=== PATIENT | male | born 1995 | race Caucasian/White ===

== ENCOUNTER 2017-03-06 20:16 | Inpatient (IN) | payer OTHER ==
[~2017-03-06] VITALS: Ht 170.2 cm; Wt 60.0 kg
[2017-03-06 23:06] LABS: MEAN CORPUSCULAR HEMOGLOBIN 28.4 pg (27.0-33.0); MEAN CORPUSCULAR HGB CONC 33.9 g/dl (32.0-36.5); MEAN CORPUSCULAR VOLUME 83.9 fl (80.0-96.0); PLATELET COUNT, AUTOMATED 202 10^3/uL (150-450); RED CELL DISTRIBUTION WIDTH 12.2 % (11.5-14.5); WHITE BLOOD COUNT 6.1 10^3/uL (4.0-10.0)
[2017-03-06 23:33] LABS: METHADONE URINE NEGATIVE (NEGATIVE)
[2017-03-06 23:42] LABS: ALBUMIN 4.3 GM/DL (3.2-5.2); ALBUMIN/GLOBULIN RATIO 1.23 (1.00-1.93); ALKALINE PHOSPHATASE 119 U/L (45-117); ALT/SGPT 16 U/L (12-78); ANION GAP 5 MEQ/L (8-16); AST/SGOT 11 U/L (15-37); BILIRUBIN,DIRECT 0.2 MG/DL (0.0-0.2); BILIRUBIN,TOTAL 0.6 MG/DL (0.2-1.0); BLOOD UREA NITROGEN 17 MG/DL (7-18); CALCIUM LEVEL 9.1 MG/DL (8.5-10.1); CARBON DIOXIDE LEVEL 32 MEQ/L (21-32); CHLORIDE LEVEL 104 MEQ/L (98-107); CREATININE FOR GFR 1.02 MG/DL (0.70-1.30); GLUCOSE, FASTING 78 MG/DL (70-105); POTASSIUM SERUM 3.8 MEQ/L (3.5-5.1); SODIUM LEVEL 141 MEQ/L (136-145); TOTAL PROTEIN 7.8 GM/DL (6.4-8.2)
[2017-03-07] MEDS ORDERED: MAALOX 30 ML SUSP *UDC PO PRN (00:15)
[2017-03-07] MEDS ORDERED: ACETAMINOPHEN TAB 650MG DOSE (2X325MG) PO PRN (00:15)
[2017-03-07] MEDS ORDERED: MOM 30ML SUSPENSION UDC PO PRN (00:15)
[2017-03-07] MEDS ORDERED: traZODone 50 MG TAB PO PRN (00:15)
[2017-03-07 00:55] VITALS: BP 132/66
[2017-03-07] MEDS: NICOTINE 14 MG/24 HR TRANSDERMAL TD SCH (08:48)
--- NOTE | 2017-03-07 09:43 | HPEPDOC ---
[facility] Medical History & Physical Date of Admission Mar 06, 2017 History and Physical PCP: [facility] ATTENDING: Dr. Ranjeet Gunter HPI: 21 yo M admitted to [facility] for unspecified depressive disorder, being medically examined today. No acute medical complaints today. Denies any fevers, chills, weakness, fatigue, LOPEZ, CP, SOB, cough, palpitations, abdominal pain, N/V /D or changes in bowel or bladder habits. 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 ROS: As noted in HPI, otherwise 11pt ROS of systems reviewed and remarkable only for patient is noted to have insect bites bilateral forearms. He denies any pruritus or erythema. He cannot recall how he got these. PE: GEN: 21 yo M, appears stated age. Well-nourished, well developed. No acute distress. Alert and oriented x 3. Patient answers mostly with yes or no, flat affect. HEENT: Normocephalic, atraumatic. Pupils are equal, round, and reactive to light. Extraocular movements are intact. No nystagmus appreciated. Sclera are nonicteric. Conjunctiva without injection. Nose midline. Nasal turbinates without bogginess. EACs both patent BL. TMs both visualized and cain with good cone of light, no bulging or erythema. No facial asymmetry. Moist mucous membranes. Dentition fair. Pharynx pink and moist, no cobblestoning. Neck supple , trachea midline. No lymphadenopathy or thyromegaly appreciated. CHEST: Regular rate and rhythm, +S1, +S2 LUNGS: Clear to auscultation bilaterally. No wheezes, rales, or rhonchi. Breathing appears symmetric and easy. Patient is speaking in full sentences. No accessory muscle use. ABD: Round, soft, non-tender, non-distended. +Bowel sounds throughout. No rebound or guarding. No costovertebral angle tenderness. EXT: Pulses 2+ bilaterally dorsalis pedis and radial. No lower extremity edema appreciated. SKIN: [place], dry, warm. Capillary refill <2sec. No rashes. Scattered erythematous papular areas bilateral forearms, no signs of infection, no drainage. Patient states is related to insect bites. NEURO: Alert and oriented x 3. Cranial nerves III-XII are intact. No focal deficits appreciated. EKG: Pending A&P: 21 yo M admitted to [facility] for unspecified depressive disorder 1. Psych. Plan per Psychiatry. Obtain baseline EKG to assure the safety of psychiatric medications as they can prolong the QT interval. 2. Nicotine dependence. Patch available. 3. Insect bites bilateral forearms. No signs of infection at this time. Monitor. Apply Benadryl cream as needed. 4. Follow up with PCP on discharge. 5. Tattoo done unprofessionally. Patient agrees to HIV and hepatitis screening. 6. Staff member Viet present throughout exam. Vital Signs Vital Signs Date Time Temp Pulse Resp B/P (MAP) Pulse Ox O2 Delivery O2 Flow Rate FiO2 03/07/17 00:55 98.4 45 18 132/66 100 Room Air Laboratory Data Labs 24H Laboratory Tests 2 03/06/17 22:52: Nucleated Red Blood Cells % (auto) 0.0, Anion Gap 5L, Calcium Level 9.1, Aspartate Amino Transf (AST/SGOT) 11L, Alanine Aminotransferase (ALT/SGPT) 16, Alkaline Phosphatase 119H, Total Bilirubin 0.6, Direct Bilirubin 0.2, Total Protein 7.8, Albumin 4.3, Albumin/Globulin Ratio 1.23, Thyroid Stimulating Hormone (TSH) 0.935, Salicylates Level < 1.7L, Urine Amphetamines Screen NEGATIVE, Urine Benzodiazepines Screen NEGATIVE, Urine Opiates Screen NEGATIVE, Urine Methadone Screen NEGATIVE, Acetaminophen Level < 2.0L, Urine Barbiturates Screen NEGATIVE, Urine Phencyclidine Screen NEGATIVE, Urine Cocaine Metabolite Screen NEGATIVE, Urine Cannabinoids Screen NEGATIVE, Ethyl Alcohol Level < 0.003 CBC/BMP Laboratory Tests 03/06/17 22:52 Red Blood Count 5.52, Mean Corpuscular Volume 83.9, Mean Corpuscular Hemoglobin 28.4, Mean Corpuscular Hemoglobin Concent 33.9, Red Cell Distribution Width 12.2 Home Medications No Active Prescriptions or Reported Meds Allergies Coded Allergies: Ibuprofen (Verified Allergy, Severe, anaphylaxis, 03/06/17) Gilda Richardson Mar 07, 2017 09:43
[2017-03-07] MEDS ORDERED: diphenhydrAMINE CREAM 30GM TOP PRN (09:45)
[2017-03-07 18:00] VITALS: BP 142/48
--- NOTE | 2017-03-07 21:53 | MHHPEPDOC ---
[facility] History & Physical History and Physical DATE OF ADMISSION: Mar 07, 2017 at 00:06 LEGAL STATUS AT ADMISSION: 9.39. CHIEF COMPLAINT: "I want out of the " HISTORY OF PRESENT ILLNESS: Patient is a 21-year-old white male, who has no psychiatric or medical history. He was cleared medically from the [facility] ED and admitted to [facility] with depressive disorder. 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 He is very guarded, providing mostly yes/no answers only. 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 He appears very depressed & withdrawn, and admits to both. He says that his depression stems from being "dehumanized" by the & that its not good for him. He says that he has made no friends here, knows no one & doesn't plan to. He reports poor sleep, erratic appetite & ongoing thoughts of suicide. He denies having any specific plan at this time. He admits to h/o depression & inpatient care prior to being in the ". He appear guarded on interview. When asked questions about his childhood and experience in the he says "it just not something" he wants to be apart of. He mentions he feels optomistic about his future in college, but does not elaborate on the field he wishes to pursue. He is ambiguus with regards to his past. He says he has suicidal ideations, but no specific plan. He denies he would actually end his life. He says he feels he "jut needs to be out of the ". He denies any HI, AVH, mood swings, manic symptoms, paranoia or delusions. PSYCHIATRIC REVIEW OF SYSTEMS: Affective: Says he's depressed. Has lost interest in hobbies, does not elaborate (Anhedonia). Says he sleeps all day if he can. Says his appetite and energy is low. Suicidal ideations, without plan. Anxiety: Denies Trauma: Denies Psychosis: None Personality: Cluster A traits: Schizoid, says he doesn't need social interaction and doesn't need it, decreased range of emotional expression. PAST PSYCHIATRIC HISTORY: Prior Psychiatric Disorder: None Outpatient Treatment: None Suicidal/Self injurious: Passive suicidal ideations, no specific plan. Psychotropic Medication History: None ALLERGIES: Please see below. FAMILY PSYCHIATRIC HISTORY: Says mom was depressed, father was alcoholic. SOCIAL HISTORY: Early Relations/development: Says he grew up in [place]. Finished high school. Denies any form of abuse. Joined the and since then has felt "depressed " due to the "dehumanization" aspect of the . Currently resides in [place]. Paternal relationships: Says he had a good relationship with his father, despite his alcoholism. 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 Supports: Says he has a strong family backing. Abuse/trauma: Denies SUBSTANCE ABUSE HISTORY: Cannabis, a few times a month. Social drinking few times a month. Smokes a quater pack per week. PAST MEDICAL/SURGICAL HISTORY: None VITAL SIGNS: Temperature 99.7, BP 142/48 (79), Respiratory Rate 16, HR 60, % oxygenation on room air 97 MENTAL STATUS EXAMINATION: General appearance: Patient is a 21-year old white male, who is NAD, cooperative , poor eye contact, in street clothing. Speech: non-spontaneous, decreased in rate, rhythm, volume Thought processes: linear, logical Thought content: Endorses passive suicidal ideations, denies HI, AVH, paranoia, delusions Abstract reasoning and computation: Unable to assess Description of associations: Unable to assess Description of abnormal or psychotic thoughts: Denies Judgment: poor Insight: fair Orientation: A/O x3 Recent and remote memory: Good Attention span and concentration: Fair Fund of knowledge: Unable to assess Mood: "pretty good" Affect: dysthymic, blunted, mood-incongruent DIAGNOSES: 1. Unspecified depressive disorder ASSESSMENT: Patient states he wants out of the . He is guarded and is likely minimizing his symptoms. He says he doesn't like the organization of the system, but does not elaborate further. He says he is withdrawn and feels the the environment is not for him, as it is a "dehumanizing" experience. 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 He has goal oriented activity, which includes pursuing a different route for his future to pursue a college degree. However, he has no specific field of study in mind. He mentions he has had depression since starting his career in October 2015. He also mentions he has been "depressed" in the past, several years ago and was treated on Wellbutrin (no dose mentioned) with some success, without significant side effects. He states he has used cannabis infrequent, couple times a month. He was counselled with regards to his cannabis use and smoking habit. He denies other drug use. Overall he feels indifferent to his situation and says he has lost interest in his hobbies, which he does not elaborate on, and spends his time off duty sleeping more than 12 hours a day. Further workup is required to assess the patient as he remains guarded. PROBLEM LIST: 1. Depression 2. Avoidance Coping 3. At risk for self harm 4. Suicidal Ideations INITIAL TREATMENT PLAN: 1. Patient was admitted on a 9.. 2. Complete history was obtained. 3. With patients permission, family will be contacted and database will be expanded. 4. Patients medication regimen will be reviewed and changed accordingly. 5. Patient will be provided with protected environment. 6. Patient will be treated with individual, group, and milieu therapies. 7. Patient will receive supportive psych-education. 8. Discharge planning will commence immediately. 9. Outpatient follow-up treatment will be strongly recommended. 10. The initial treatment plan will focus initially on: * Depression. * Risk for suicide. * Substance abuse. ESTIMATED LENGTH OF STAY: 2-10 DAYS. TIME SPENT COUNSELING AND COORDINATING INITIAL CARE: 60 minutes. Vital Signs Vital Signs Date Time Temp Pulse Resp B/P (MAP) Pulse Ox O2 Delivery O2 Flow Rate FiO2 03/07/17 18:00 99.7 60 16 142/48 (79) 03/07/17 00:55 100 Room Air Laboratory Data 24H Labs Laboratory Tests 2 03/06/17 22:52: Nucleated Red Blood Cells % (auto) 0.0, Anion Gap 5L, Calcium Level 9.1, Aspartate Amino Transf (AST/SGOT) 11L, Alanine Aminotransferase (ALT/SGPT) 16, Alkaline Phosphatase 119H, Total Bilirubin 0.6, Direct Bilirubin 0.2, Total Protein 7.8, Albumin 4.3, Albumin/Globulin Ratio 1.23, Thyroid Stimulating Hormone (TSH) 0.935, Salicylates Level < 1.7L, Urine Amphetamines Screen NEGATIVE, Urine Benzodiazepines Screen NEGATIVE, Urine Opiates Screen NEGATIVE, Urine Methadone Screen NEGATIVE, Acetaminophen Level < 2.0L, Urine Barbiturates Screen NEGATIVE, Urine Phencyclidine Screen NEGATIVE, Urine Cocaine Metabolite Screen NEGATIVE, Urine Cannabinoids Screen NEGATIVE, Ethyl Alcohol Level < 0.003 03/07/17 10:10: CBC/BMP Laboratory Tests 03/06/17 22:52 Red Blood Count 5.52, Mean Corpuscular Volume 83.9, Mean Corpuscular Hemoglobin 28.4, Mean Corpuscular Hemoglobin Concent 33.9, Red Cell Distribution Width 12.2 Medications No Active Prescriptions or Reported Meds Allergies Coded Allergies: Ibuprofen (Verified Allergy, Severe, anaphylaxis, 03/06/17) GEORGINA REDMAN PGY-1 Mar 07, 2017 21:53
[2017-03-08 06:50] VITALS: BP 121/55
[2017-03-08] MEDS: NICOTINE 14 MG/24 HR TRANSDERMAL TD SCH (08:27)
[2017-03-08] MEDS ORDERED: buPROPion 100 MG TAB PO SCH (09:00)
--- NOTE | 2017-03-08 14:25 | MHIPNPDOC ---
[facility] Progress Note Progress Note DATE OF SERVICE: 03/08/17 HISTORY: Patient is a 21-year-old white male, who has no psychiatric or medical history. He was cleared medically from the [facility] ED and admitted to [facility] with depressive disorder. 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 He is very guarded, providing mostly yes/no answers only. 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 He appears very depressed & withdrawn, and admits to both. He says that his depression stems from being "dehumanized" by the & that its not good for him. He says that he has made no friends here, knows no one & doesn't plan to. He reports poor sleep, erratic appetite & ongoing thoughts of suicide. He denies having any specific plan at this time. He admits to h/o depression & inpatient care prior to being in the ". He appear guarded on interview. When asked questions about his childhood and experience in the he says "it just not something" he wants to be apart of. He mentions he feels optimistic about his future in college, but does not elaborate on the field he wishes to pursue. He is ambiguus with regards to his past. He says he has suicidal ideations, but no specific plan. He denies he would actually end his life. He says he feels he "jut needs to be out of the ". He denies any HI, AVH, mood swings, manic symptoms, paranoia or delusions. Interval History 03/08/17: Says he's doing "pretty good" today. Says he feels a little tired. Says he got 7-8 hours of sleep last night. Says his appetite is "ok" and has not changed in the last few weeks. When asked about why he smiles he says "I just do that", it's a reflex. He is resistant and guarded during the interview, answers in one words answers. He denies suicidal thoughts, saying "not today". He says his mood is "indifferent", which is how it has been since joining the army. He makes intense eye contact and speaks in a quiet, low voice. Denies anxiety, AVH, paranoia, delusions. May be minimizing his symptoms. Says he is fine with isolating himself and being withdrawn. VITAL SIGNS: See below. NEW TEST RESULTS: none CURRENT MEDICATIONS: See below. MENTAL STATUS EXAMINATION: Patient is a 21-year old white male, who is in NAD, in hospital clothing, inappropriate/intense eye contact Speech: Is decreased in rate, rhythm, volume, non spontaneous, answers in 1 or 2 words Language skills are Intact Thought processes including: linear, logical Thought content: Denies SI, HI, AVH, paranoia Abstract reasoning, and computation: Poor Description of associations: Good. Description of abnormal or psychotic thoughts: None Judgment: poor Insight: poor Orientation: A/O x3 Recent and remote memory: Good Attention span and concentration: Fair Language: appropriate Fund of knowledge: Average Mood: "indifferent" Affect: anhedonic, Flat, mood congruent, inappropriate (smiles occasionally) DIAGNOSES: 1. Unspecified psychotic disorder ASSESSMENT: Patient asks about how to get out army. He denies any psychotic symptoms, but smiles occasionally without any triggers and appears to be responding to internal stimuli. His eye contact is intense and inappropriate. He says he "feels indifferent". Currently he says he's neither anxious or having decreased mood. Will consider treatment with an SSRI if he endorses mood symptoms. MANAGEMENT PLAN: Stopped Wellbutrin. Started on Invega 3 mg QAM daily. Will consider increasing his dose of medication if he remains guarded or does not show improvement. Continue to monitor for safety. Continue to monitor for medication side effects including but not limited to, restlessness, drowsiness, dizziness, Headache, tremor, weight gain, nausea upset stomach, sexual impotence. Continue treatment plan. TIME SPENT: 30 minutes. Vital Signs Vital Signs Date Time Temp Pulse Resp B/P (MAP) Pulse Ox O2 Delivery O2 Flow Rate FiO2 03/08/17 06:50 97.5 58 18 121/55 (77) 03/07/17 00:55 100 Room Air Current Medications Current Medications Acetaminophen (Tylenol Tab) 650 mg Q6HP PRN PO HEADACHE or DISCOMFORT; Start 03/07/17 at 00:15; Stop 04/06/17 at 00:14 Al Hydrox/Mg Hydrox/Simethicone (Mylanta) 30 ml Q4HP PRN PO HEARTBURN/ INDIGESTION; Start 03/07/17 at 00:15; Stop 04/06/17 at 00:14 Bupropion HCl (Wellbutrin) 50 mg DAILY PO Last administered on 03/08/17 08:27 ; Start 03/08/17 at 09:00; Stop 03/08/17 at 09:16; Status DC Diphenhydramine HCl (Benadryl Cream) 1 dose BIDP PRN TOP ITCHING; Start at 09:45; Stop 04/06/17 at 09:44 Home Med (Med Rec Complete!) ASDIRECTED XX ; Start 03/07/17 at 01:00; Stop at 01:00; Status DC Magnesium Hydroxide (Milk Of Magnesia) 30 ml DAILYPRN PRN PO CONSTIPATION; Start 03/07/17 at 00:15; Stop 04/06/17 at 00:14 Nicotine (Nicoderm Cq 14mg) 1 patch DAILY TD Last administered on 03/08/17 08 :27; Start 03/07/17 at 09:00; Stop 04/06/17 at 08:59 Paliperidone (Invega) 3 mg QAM PO ; Start 03/09/17 at 09:00; Stop 04/08/17 at 08:59 Trazodone HCl (Desyrel) 50 mg QHSP PRN PO INSOMNIA; Start 03/07/17 at 00:15; Stop 04/06/17 at 00:14 Allergies Coded Allergies: Ibuprofen (Verified Allergy, Severe, anaphylaxis, 03/06/17) GEORGINA REDMAN PGY-1 Mar 08, 2017 14:25
[2017-03-08] MEDS: SERTRALINE HCL 50 MG TAB PO SCH (16:41)
[2017-03-08 18:00] VITALS: BP 141/64
--- NOTE | 2017-03-08 21:05 | ECGEPIP ---
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
[2017-03-09 07:24] VITALS: BP 128/63
[2017-03-09] MEDS: SERTRALINE HCL 50 MG TAB PO SCH (09:19)
[2017-03-09] MEDS: NICOTINE 14 MG/24 HR TRANSDERMAL TD SCH (09:19)
[2017-03-09] MEDS: PALIPERIDONE 3 MG ER TAB (INVEGA) PO SCH (09:19)
--- NOTE | 2017-03-09 10:01 | MHIPNPDOC ---
[facility] Progress Note Progress Note DATE OF SERVICE: 03/09/17 HISTORY: Patient is a 21-year-old white male, who has no psychiatric or medical history. He was cleared medically from the [facility] ED and admitted to [facility] with depressive disorder. 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 He is very guarded, providing mostly yes/no answers only. 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 He appears very depressed & withdrawn, and admits to both. He says that his depression stems from being "dehumanized" by the & that its not good for him. He says that he has made no friends here, knows no one & doesn't plan to. He reports poor sleep, erratic appetite & ongoing thoughts of suicide. He denies having any specific plan at this time. He admits to h/o depression & inpatient care prior to being in the ". He appear guarded on interview. When asked questions about his childhood and experience in the he says "it just not something" he wants to be apart of. He mentions he feels optimistic about his future in college, but does not elaborate on the field he wishes to pursue. He is ambiguus with regards to his past. He says he has suicidal ideations, but no specific plan. He denies he would actually end his life. He says he feels he "jut needs to be out of the ". He denies any HI, AVH, mood swings, manic symptoms, paranoia or delusions. Interval History 03/09/17: Patient appears to have increased energy and is more alert on interview. His speech is spontaneous and he answers in phrases. Eye contact is normal. Says he feels "happy" for the first time in a while, since he got news after talking to his staff sergeant that there might be arrangements in a few months for his discharge. Says his appetite has improved, as well as his energy. Says he didn't sleep last night very well, however he didn't take his Trazodone 50 mg before bed. Patient is smiling more on interview. Denies suicidal ideations or medication side effects apart from some mild nausea in the mornings. VITAL SIGNS: See below. NEW TEST RESULTS: none CURRENT MEDICATIONS: See below. MENTAL STATUS EXAMINATION: Patient is a 21-year old white male, who is in NAD, in hospital clothing, inappropriate/intense eye contact Speech: Is decreased in rate, rhythm, volume, spontaneous, answers in 1 or 2 words Language skills are Intact Thought processes including: linear, logical Thought content: Denies SI, HI, AVH, paranoia Abstract reasoning, and computation: Poor Description of associations: Good. Description of abnormal or psychotic thoughts: None Judgment: improving Insight: improving Orientation: A/O x3 Recent and remote memory: Good Attention span and concentration: Fair Language: appropriate Fund of knowledge: Average Mood: "alright" Affect: dysthymic, constricted, mood congruent, appropriate DIAGNOSES: 1. Unspecified psychotic disorder 2. Unspecified depressive disorder ASSESSMENT: Patient thinks he is improving with regards to mood. He appears to have more energy and says he will try to participate in groups today. He says both the news of possible discharge and treatment here on the unit are helping him. We talked about how Trazodone 50 mg QHS can help him with his sleep. Medication side effects were discussed with patient. MANAGEMENT PLAN: Continue treatment plan. No medication changes at this time. Continue to monitor for safety. Continue to monitor for medication side effects including but not limited to, nausea, headache, restlessness, drowsiness, dizziness, tremor, weight gain, nausea upset stomach, sexual impotence. TIME SPENT: 30 minutes. Vital Signs Vital Signs Date Time Temp Pulse Resp B/P (MAP) Pulse Ox O2 Delivery O2 Flow Rate FiO2 03/09/17 07:24 98.6 76 16 128/63 (84) Room Air 03/07/17 00:55 100 Current Medications Current Medications Acetaminophen (Tylenol Tab) 650 mg Q6HP PRN PO HEADACHE or DISCOMFORT; Start 03/07/17 at 00:15; Stop 04/06/17 at 00:14 Al Hydrox/Mg Hydrox/Simethicone (Mylanta) 30 ml Q4HP PRN PO HEARTBURN/ INDIGESTION; Start 03/07/17 at 00:15; Stop 04/06/17 at 00:14 Bupropion HCl (Wellbutrin) 50 mg DAILY PO Last administered on 03/08/17 08:27 ; Start 03/08/17 at 09:00; Stop 03/08/17 at 09:16; Status DC Diphenhydramine HCl (Benadryl Cream) 1 dose BIDP PRN TOP ITCHING; Start at 09:45; Stop 04/06/17 at 09:44 Home Med (Med Rec Complete!) ASDIRECTED XX ; Start 03/07/17 at 01:00; Stop at 01:00; Status DC Magnesium Hydroxide (Milk Of Magnesia) 30 ml DAILYPRN PRN PO CONSTIPATION; Start 03/07/17 at 00:15; Stop 04/06/17 at 00:14 Nicotine (Nicoderm Cq 14mg) 1 patch DAILY TD Last administered on 03/09/17 09 :19; Start 03/07/17 at 09:00; Stop 04/06/17 at 08:59 Paliperidone (Invega) 3 mg QAM PO Last administered on 03/09/17 09:19; Start 03/09/17 at 09:00; Stop 04/08/17 at 08:59 Sertraline HCl (Zoloft) 50 mg DAILY PO Last administered on 03/09/17 09:19; Start 03/08/17 at 09:00; Stop 04/07/17 at 08:59 Trazodone HCl (Desyrel) 50 mg QHSP PRN PO INSOMNIA; Start 03/07/17 at 00:15; Stop 04/06/17 at 00:14 Allergies Coded Allergies: Ibuprofen (Verified Allergy, Severe, anaphylaxis, 03/06/17) GEORGINA REDMAN PGY-1 Mar 09, 2017 10:01
[2017-03-09 18:00] VITALS: BP 130/71
[2017-03-10 07:01] VITALS: BP 129/62
[2017-03-10] MEDS: SERTRALINE HCL 50 MG TAB PO SCH (09:39)
[2017-03-10] MEDS: PALIPERIDONE 3 MG ER TAB (INVEGA) PO SCH (09:39)
[2017-03-10] MEDS: NICOTINE 14 MG/24 HR TRANSDERMAL TD SCH (09:40)
[2017-03-10 18:00] VITALS: BP 137/63
--- NOTE | 2017-03-10 21:25 | MHIPNPDOC ---
[facility] Progress Note Progress Note DATE OF SERVICE: 03/10/17 HISTORY: Patient is a 21-year-old white male, who has no psychiatric or medical history. He was cleared medically from the [facility] ED and admitted to [facility] with depressive disorder. 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 He is very guarded, providing mostly yes/no answers only. 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 He appears very depressed & withdrawn, and admits to both. He says that his depression stems from being "dehumanized" by the & that its not good for him. He says that he has made no friends here, knows no one & doesn't plan to. He reports poor sleep, erratic appetite & ongoing thoughts of suicide. He denies having any specific plan at this time. He admits to h/o depression & inpatient care prior to being in the ". He appear guarded on interview. When asked questions about his childhood and experience in the he says "it just not something" he wants to be apart of. He mentions he feels optimistic about his future in college, but does not elaborate on the field he wishes to pursue. He is ambiguus with regards to his past. He says he has suicidal ideations, but no specific plan. He denies he would actually end his life. He says he feels he "jut needs to be out of the ". He denies any HI, AVH, mood swings, manic symptoms, paranoia or delusions. Interval History 03/10/17: Patient continues to have increased energy and increased alertness on interview. His speech continues to be spontaneous. Eye contact continues to be normal. Says his appetite and sleep continue to improved , as well as his energy. Denies suicidal ideations or medication side effects apart from some mild nausea in the mornings. Denies AVH, paranoia. Continues to not attend groups apart from communication group today, which he says has helped with his coping skills. He continues to spend the majority of his time in his room. He was counselled on reaching out and attending groups to help his progress on the unit. He appears brighter overall. VITAL SIGNS: See below. NEW TEST RESULTS: none CURRENT MEDICATIONS: See below. MENTAL STATUS EXAMINATION: Patient is a 21-year old white male, who is in NAD, in hospital clothing, inappropriate/intense eye contact Speech: Is delayed decreased in rate, rhythm, volume, spontaneous, answers in full sentence Language skills are Intact Thought processes including: linear, logical Thought content: Denies SI, HI, AVH, paranoia Abstract reasoning, and computation: Poor Description of associations: Good. Description of abnormal or psychotic thoughts: None Judgment: improving Insight: improving Orientation: A/O x3 Recent and remote memory: Good Attention span and concentration: Fair Language: appropriate Fund of knowledge: Average Mood: "good" Affect: anhedonic, constricted, mood-incongruent, inappropriate DIAGNOSES: 1. Unspecified psychotic disorder 2. Unspecified depressive disorder ASSESSMENT: Patient continues to believe he is improving with regards to mood. He appears to have more energy and continues to say he will participate in groups, he attended the communication group to develop coping skills. He continues to minimize his symptoms, however appears more alert today with appropriate eye-contact. Further work up required to manage/treat patient effectively. MANAGEMENT PLAN: Continue treatment plan. No medication changes at this time. Continue to monitor for safety. Continue to monitor for medication side effects including but not limited to, nausea, headache, restlessness, drowsiness, dizziness, tremor, weight gain, nausea upset stomach, sexual impotence. TIME SPENT: 30 minutes. Vital Signs Vital Signs Date Time Temp Pulse Resp B/P (MAP) Pulse Ox O2 Delivery O2 Flow Rate FiO2 03/10/17 18:00 99.0 63 16 137/63 (87) 03/10/17 07:01 Room Air 03/07/17 00:55 100 Current Medications Current Medications Acetaminophen (Tylenol Tab) 650 mg Q6HP PRN PO HEADACHE or DISCOMFORT; Start 03/07/17 at 00:15; Stop 04/06/17 at 00:14 Al Hydrox/Mg Hydrox/Simethicone (Mylanta) 30 ml Q4HP PRN PO HEARTBURN/ INDIGESTION; Start 03/07/17 at 00:15; Stop 04/06/17 at 00:14 Bupropion HCl (Wellbutrin) 50 mg DAILY PO Last administered on 03/08/17 08:27 ; Start 03/08/17 at 09:00; Stop 03/08/17 at 09:16; Status DC Diphenhydramine HCl (Benadryl Cream) 1 dose BIDP PRN TOP ITCHING; Start at 09:45; Stop 04/06/17 at 09:44 Home Med (Med Rec Complete!) ASDIRECTED XX ; Start 03/07/17 at 01:00; Stop at 01:00; Status DC Magnesium Hydroxide (Milk Of Magnesia) 30 ml DAILYPRN PRN PO CONSTIPATION; Start 03/07/17 at 00:15; Stop 04/06/17 at 00:14 Nicotine (Nicoderm Cq 14mg) 1 patch DAILY TD Last administered on 03/10/17 09 :40; Start 03/07/17 at 09:00; Stop 04/06/17 at 08:59 Paliperidone (Invega) 3 mg QAM PO Last administered on 03/10/17 09:39; Start 03/09/17 at 09:00; Stop 04/08/17 at 08:59 Sertraline HCl (Zoloft) 50 mg DAILY PO Last administered on 03/10/17 09:39; Start 03/08/17 at 09:00; Stop 04/07/17 at 08:59 Trazodone HCl (Desyrel) 50 mg QHSP PRN PO INSOMNIA; Start 03/07/17 at 00:15; Stop 04/06/17 at 00:14 Allergies Coded Allergies: Ibuprofen (Verified Allergy, Severe, anaphylaxis, 03/06/17) GEORGINA REDMAN PGY-1 Mar 10, 2017 21:25
[2017-03-11 07:19] VITALS: BP 118/62
[2017-03-11] MEDS: SERTRALINE HCL 50 MG TAB PO SCH (08:29)
[2017-03-11] MEDS: NICOTINE 14 MG/24 HR TRANSDERMAL TD SCH (08:29)
[2017-03-11] MEDS: PALIPERIDONE 3 MG ER TAB (INVEGA) PO SCH (08:29)
[2017-03-11 18:00] VITALS: BP 113/66
[2017-03-12 06:00] VITALS: BP 123/60
[2017-03-12] MEDS: NICOTINE 14 MG/24 HR TRANSDERMAL TD SCH (08:44)
[2017-03-12] MEDS: SERTRALINE HCL 50 MG TAB PO SCH (08:44)
[2017-03-12] MEDS: PALIPERIDONE 3 MG ER TAB (INVEGA) PO SCH (08:45)
--- NOTE | 2017-03-12 14:39 | MHIPN ---
DATE OF SERVICE: 03/11/2017 HISTORY: 21-year-old male admitted for depression and suicidal ideation. MEDICATIONS: - Invega 3 mg by mouth every morning - Zoloft 50 mg by mouth every morning SUBJECTIVE: "I am feeling better". OBJECTIVE: No major changes from admission. Patient continues depressed. He is able to contract for safety while in the hospital. Continues guarded. He has denied auditory or visual hallucinations during the interview. Denies side effect from the medication. MENTAL STATUS EXAMINATION: The patient is dressed in [facility]. The patient is cooperative, has fair eye contact. Speech is normal in rate, volume, articulation. Mood is anxious. Affect is restricted. Patient denies auditory or visual hallucinations during the interview. Memory is fair. Patient is fully oriented. The patient is able to contract for safety while in the hospital. Insight and judgment is limited. ASSESSMENT: 1. Depression. 2. Suicidal ideation. PLAN: 1. Continue Invega 3 mg by mouth every morning. 2. Continue Zoloft 50 mg by mouth every morning. 3. Continue medication management, individual and group therapy.
[2017-03-12 18:00] VITALS: BP 119/57
[2017-03-13 06:56] VITALS: BP 109/54
[2017-03-13] MEDS: NICOTINE 14 MG/24 HR TRANSDERMAL TD SCH (08:37)
[2017-03-13] MEDS: PALIPERIDONE 3 MG ER TAB (INVEGA) PO SCH (08:37)
[2017-03-13] MEDS: SERTRALINE HCL 50 MG TAB PO SCH (08:37)
--- NOTE | 2017-03-13 12:14 | MHIPNPDOC ---
[facility] Progress Note Progress Note DATE OF SERVICE: 03/13/17 HISTORY: Patient is a 21-year-old white male, who has no psychiatric or medical history. He was cleared medically from the [facility] ED and admitted to [facility] with depressive disorder. 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 He is very guarded, providing mostly yes/no answers only. 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 He appears very depressed & withdrawn, and admits to both. He says that his depression stems from being "dehumanized" by the & that its not good for him. He says that he has made no friends here, knows no one & doesn't plan to. He reports poor sleep, erratic appetite & ongoing thoughts of suicide. He denies having any specific plan at this time. He admits to h/o depression & inpatient care prior to being in the ". He appear guarded on interview. When asked questions about his childhood and experience in the he says "it just not something" he wants to be apart of. He mentions he feels optimistic about his future in college, but does not elaborate on the field he wishes to pursue. He is ambiguus with regards to his past. He says he has suicidal ideations, but no specific plan. He denies he would actually end his life. He says he feels he "jut needs to be out of the ". He denies any HI, AVH, mood swings, manic symptoms, paranoia or delusions. Interval History 03/13/17: Says he feels more relaxed and his mood is "better". Says he had a headache yesterday. Likely from not drinking enough water. Patient continues to have increased energy and increased alertness on interview. His speech continues to be spontaneous. Eye contact continues to be normal. Says his appetite and sleep continue to improved, as well as his energy. Denies suicidal ideations or medication side effects at this time. Denies AH, VH, paranoia. Has not been attending groups today. He continues to spend the majority of his time in his room. He was counselled on reaching out and attending groups to help his progress on the unit. He appears brighter overall. VITAL SIGNS: See below. NEW TEST RESULTS: none CURRENT MEDICATIONS: See below. MENTAL STATUS EXAMINATION: Patient is a 21-year old white male, who is in NAD, in hospital clothing, appropriate eye contact Speech: Is delayed, decreased in rate, rhythm, volume, spontaneous, answers in full sentences, asks questions Language skills Intact Thought processes including: linear, logical Thought content: Denies SI, HI, AVH, paranoia Abstract reasoning, and computation: Poor Description of associations: Good. Description of abnormal or psychotic thoughts: None Judgment: improving Insight: improving Orientation: A/O x3 Recent and remote memory: Good Attention span and concentration: Fair Language: appropriate Fund of knowledge: Average Mood: "good" Affect: euthymic, constricted, mood-congruent, smiles DIAGNOSES: 1. Unspecified psychotic disorder 2. Unspecified depressive disorder ASSESSMENT: Patient continues to believe he is improving with regards to mood. Says he's feeling more social, but still spends most of his time in his room talking to his roommate. Seems eager to continue with treatment on an outpatient basis. We discussed possible discharge tomorrow. Says he's ready to leave tomorrow and plans to attend his follow up appointments so he can continue to take his medications. He continues to have more energy, but has not been attending groups. Was counselled with regard to group therapy helping with his treatment. MANAGEMENT PLAN: Continue treatment plan. No medication changes at this time. Continue to monitor for safety. Continue to monitor for medication side effects including but not limited to, nausea, headache, restlessness, drowsiness, dizziness, tremor, weight gain, nausea upset stomach, sexual impotence. TIME SPENT: 30 minutes. Vital Signs Vital Signs Date Time Temp Pulse Resp B/P (MAP) Pulse Ox O2 Delivery O2 Flow Rate FiO2 03/13/17 06:56 97.9 60 18 109/54 (72) 03/11/17 10:07 Nasal Cannula 03/07/17 00:55 100 Current Medications Current Medications Acetaminophen (Tylenol Tab) 650 mg Q6HP PRN PO HEADACHE or DISCOMFORT; Start 03/07/17 at 00:15; Stop 04/06/17 at 00:14 Al Hydrox/Mg Hydrox/Simethicone (Mylanta) 30 ml Q4HP PRN PO HEARTBURN/ INDIGESTION; Start 03/07/17 at 00:15; Stop 04/06/17 at 00:14 Bupropion HCl (Wellbutrin) 50 mg DAILY PO Last administered on 03/08/17 08:27 ; Start 03/08/17 at 09:00; Stop 03/08/17 at 09:16; Status DC Diphenhydramine HCl (Benadryl Cream) 1 dose BIDP PRN TOP ITCHING; Start at 09:45; Stop 04/06/17 at 09:44 Home Med (Med Rec Complete!) ASDIRECTED XX ; Start 03/07/17 at 01:00; Stop at 01:00; Status DC Magnesium Hydroxide (Milk Of Magnesia) 30 ml DAILYPRN PRN PO CONSTIPATION; Start 03/07/17 at 00:15; Stop 04/06/17 at 00:14 Nicotine (Nicoderm Cq 14mg) 1 patch DAILY TD Last administered on 03/13/17 08 :37; Start 03/07/17 at 09:00; Stop 04/06/17 at 08:59 Paliperidone (Invega) 3 mg QAM PO Last administered on 03/13/17 08:37; Start 03/09/17 at 09:00; Stop 04/08/17 at 08:59 Sertraline HCl (Zoloft) 50 mg DAILY PO Last administered on 03/13/17 08:37; Start 03/08/17 at 09:00; Stop 04/07/17 at 08:59 Trazodone HCl (Desyrel) 50 mg QHSP PRN PO INSOMNIA; Start 03/07/17 at 00:15; Stop 04/06/17 at 00:14 Allergies Coded Allergies: Ibuprofen (Verified Allergy, Severe, anaphylaxis, 03/06/17) GEORGINA REDMAN PGY-1 Mar 13, 2017 12:14
[2017-03-13 18:00] VITALS: BP 137/71
[2017-03-14 06:44] VITALS: BP 126/62
[2017-03-14] MEDS: NICOTINE 14 MG/24 HR TRANSDERMAL TD SCH (08:03)
[2017-03-14] MEDS: SERTRALINE HCL 50 MG TAB PO SCH (08:03)
[2017-03-14] MEDS: PALIPERIDONE 3 MG ER TAB (INVEGA) PO SCH (08:03)
--- NOTE | 2017-03-14 12:52 | MHDSPDOC ---
[facility] Discharge Summary Discharge Summary DATE OF ADMISSION: Mar 07, 2017 at 00:06 DATE OF DISCHARGE: 03/14/17 DISCHARGE DIAGNOSES: 1. Unspecified psychotic disorder 2. Unspecified depressive disorder REASON FOR ADMISSION: Patient is a 21-year-old white male, who has no psychiatric or medical history. He was cleared medically from the [facility] ED and admitted to [facility] with depressive disorder. 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 He is very guarded, providing mostly yes/no answers only. 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 He appears very depressed & withdrawn, and admits to both. He says that his depression stems from being "dehumanized" by the & that its not good for him. He says that he has made no friends here, knows no one & doesn't plan to. He reports poor sleep, erratic appetite & ongoing thoughts of suicide. He denies having any specific plan at this time. He admits to h/o depression & inpatient care prior to being in the ". He appears guarded on interview. When asked questions about his childhood and experience in the he says "it just not something" he wants to be apart of. He mentions he feels optimistic about his future in college, but does not elaborate on the field he wishes to pursue. He is ambiguus with regards to his past. He says he has suicidal ideations, but no specific plan. He denies he would actually end his life. He says he feels he "just needs to be out of the ". He denies any HI, AVH, mood swings, manic symptoms, paranoia or delusions. CONSULTANTS INVOLVED: none TREATMENT AND PROGRESS ON THE UNIT : Arrives to the [facility] Emergency Department 03/06/17 accompanied by [place] [employer] after making suicidal statements. Medically cleared and transferred to the [facility] for unspecified depressive disorder. 03/07/17 Started on 50 mg Trazodone orally nightly as needed for insomnia, started nicotine patch 14 mg/ 24 hours for nicotine withdrawal, EKG ordered (results on 03/08/17; QTc 382, Sinus Bradycardia), diphenhydramine 1 dose twice daily topical for skin rash, hepatitis profile ordered (unremarkable apart from alkaline phos. elevated; 119) , HIV ab screen is negative, started on Bupropion HCL 50 mg orally daily for anxiety. Patient remains isolated in his room, with non-spontaneous speech and appears depressed, withdrawn and possibly responding to internal stimuli. Bupropion HCL stopped, started on Paliperidone Cr 3 mg orally in the morning for psychosis and Sertraline 50 mg orally daily for depression/anxiety. Patient was scheduled for daily individual/group therapy (poor attendance), sleep evaluation, suicide risk assessment, vital signs, was counselled regarding smoking, pain assessment and fall assessment. Patient denied common and rare side effects from his medications during his stay apart from some mild nausea when starting his medications that subsided during the course of his treatment. He became spontaneous with his speech and his mood improved. He was able to laugh and smile prior to discharge. He received further education prior to discharge regarding his outpatient treatment. HOSPITAL COURSE: See above DISCHARGE ASSESSMENT: Patient says he's mildly anxious to leave, but he is also excited to leave the [facility]. He is pleasant and cooperative on interview and smiles. He denies having decreased mood. He denies auditory, visual hallucinations or other distortions of perception. He denies suicidal thoughts or plan. Says he had a mild headache yesterday, otherwise denies any common or rare side effects from his medications. Says he's ready to get further treatment at [facility]. MENTAL STATUS EXAMINATION: Patient is a 21-year old white male, who is in NAD, in hospital clothing, appropriate eye contact Speech: Is delayed, decreased in rate, rhythm, volume, spontaneous, answers in full sentences Language skills Intact Thought processes including: linear, logical Thought content: Denies SI, HI, AVH, paranoia Abstract reasoning, and computation: Poor Description of associations: Good. Description of abnormal or psychotic thoughts: None Judgment: improving Insight: improving Orientation: A/O x3 Recent and remote memory: Good Attention span and concentration: Fair Language: appropriate Fund of knowledge: Average Mood: "great" Affect: euthymic, constricted, mood-congruent, smiles PLAN/FOLLOWUP ARRANGEMENTS: Follow Up Care Education Label * Mental Health Appt 1 * Mental Health 1st Embedded [facility] * Established With This Provider Yes * Therapist Dr Lewis * Date Mar 15, 2017 * Time 10:00 * Follow Up Care Education Label * Mental Health Appt 2 * Mental Health 1st Embedded [facility] * Established With This Provider Yes * Therapist Zohreh Aviles * Date Mar 17, 2017 * Time 13:30 * Follow Up Care Education Label * Mental Health Appt 3 * Mental Health 1st Embedded [facility] * Established With This Provider Yes * Therapist Dr Linton * Date Apr 17, 2017 * Time 09:00 * Follow Up Care Education Label * Medical * Medical Follow Up [facility] * Established With This Provider Yes * Date Mar 28, 2017 * Time 08:00 * The amount of time spent in the coordination of care for this patient was approximately 30 minutes. Vital Signs/I&Os Vital Signs Date Time Temp Pulse Resp B/P (MAP) Pulse Ox O2 Delivery O2 Flow Rate FiO2 03/14/17 06:44 98.0 55 20 126/62 (83) Room Air Medications Scheduled Nicotine (Nicotine Transdermal Syst) 14 Mg/24 Hr Dis, 1 PATCH TD DAILY for NICOTINE WITHDRAWAL, #7 Put patch on arm in morning, remove 1 hour before bed. Paliperidone (Paliperidone ER) 3 Mg Tab, 3 MG PO QAM for psychosis, #7 Take one 3 mg tablet in the morning with a glass of water. Sertraline Hcl (Sertraline HCl) 50 Mg Tab, 50 MG PO DAILY for depression, #7 Take one tablet in the morning with a glass of water Allergies Coded Allergies: Ibuprofen (Verified Allergy, Severe, anaphylaxis, 03/06/17) GEORGINA REDMAN PGY-1 Mar 14, 2017 12:52
[2017-03-14] MEDS ORDERED: PALI1TAB2 PO (13:07)
[2017-03-14] MEDS ORDERED: NICO14PA TD (13:07)
[2017-03-14] MEDS ORDERED: SERT50TA PO (13:07)
== END 2017-03-14 13:35 | disposition home or self-care (01) | DRG 885 ==
LOC: M ED 20:16 → M ED INP 03-07 00:06 → M PSY 03-07 00:55
PROVIDERS: ADMIT Psychiatry & Neurology Psychiatry; ATTEND Psychiatry & Neurology Psychiatry
DX: F29 Unspecified psychosis not due to a substance or known physiological condition (principal); F32.9 Major depressive disorder, single episode, unspecified; Z88.6 Allergy status to analgesic agent; F17.200 Nicotine dependence, unspecified, uncomplicated